=== PATIENT | male | born 1950 | race African-American/Black ===

== ENCOUNTER 2024-02-19 07:41 | Emergency (ER) | payer OTHER ==
[2024-02-19 07:48] VITALS: BP 154/77; PULSE 67; RESP 18; TEMP 97.8; BMI 22.4
[2024-02-19] MEDS ORDERED: ACETAMINOPHEN 325 MG TABLET (FP) ONE (08:47)
[2024-02-19] MEDS ORDERED: FAMOTIDINE 10 MG TABLET ONE (08:47)
[2024-02-19] MEDS: FAMOTIDINE 10 MG TABLET PO ONE (08:57)
[2024-02-19] MEDS: ACETAMINOPHEN 500 MG TABLET (FP) PO ONE (08:57)
[2024-02-19 09:05] LABS: BASO % 0.7 % (0-2.0); EOS % 0.6 % (0-4.5); HEMATOCRIT 36.6 % (35.4-49); HEMOGLOBIN 12.6 GM/dL (11.7-16.9); LYMPH % 30.9 % (8-40); MCH 31.5 pg (25.7-33.7); MCHC 34.4 g/dl (32.0-35.9); MEAN CELL VOLUME 91.5 fl (80-96); MEAN PLT VOLUME 7.8 fl (7.5-11.1); MONO % 11.1 % (3.8-10.2); NEUT % 56.7 % (42.8-82.8); PLATELET COUNT 129 10^3/uL (134-434); WHITE BLOOD COUNT 3.7 K/mm3 (4.0-10.0)
[2024-02-19 09:20] LABS: POTASSIUM 3.9 mmol/L (3.5-5.1)
[2024-02-19 09:22] LABS: ALBUMIN 3.3 g/dl (3.4-5.0); BLOOD UREA NITROGEN 14.1 mg/dL (7-18); CALCIUM 8.6 mg/dL (8.5-10.1)
[2024-02-19 09:26] LABS: CREATININE 0.9 mg/dL (0.55-1.3)
[2024-02-19 09:27] LABS: BILIRUBIN,TOTAL 0.8 mg/dL (0.2-1); TOT PROT 6.3 g/dl (6.4-8.2)
== END 2024-02-19 10:41 | disposition home or self-care (01) ==
LOC: JER 07:41
DX: K21.9 Gastro-esophageal reflux disease without esophagitis (principal); R07.9 Chest pain, unspecified; R10.13 Epigastric pain
CPT/HCPCS: 36415; 71045-TC-FY; 80053; 84484; 85025; 93005; 93010; 99285-25